=== PATIENT | male | born 1975 | race Caucasian/White ===

== ENCOUNTER 2024-06-06 09:33 | Emergency (ER) | payer MEDICAID ==
[~2024-06-06] VITALS: Ht 175.3 cm; Wt 90.0 kg
[2024-06-06 09:37] VITALS: O2SAT 98
[2024-06-06 10:27] LABS: HEMATOCRIT. 48.3 % (42.0-52.0); HEMOGLOBIN. 16.1 g/dL (14.0-18.0); LYMPHOCYTES % 17.4 % (20.0-50.0); MEAN CORPUSCULAR HEMOGLOBIN 31.2 pg (28.0-32.0); MEAN CORPUSCULAR HGB CONC 33.3 g/dL (31.0-37.0); MEAN CORPUSCULAR VOLUME 93.8 fL (80.0-94.0); MONOCYTES % 7.4 % (2.0-8.0); NEUTROPHILS % 62.2 % (40.0-76.0); PLATELET 168 x1000/uL (130-400); RED BLOOD CELL COUNT 5.15 mill/uL (4.7-6.1); RED CELL DISTRIBUTION WIDTH 13.9 % (11.6-14.6); WHITE BLOOD COUNT 7.2 x1000/uL (4.5-11.0)
[2024-06-06 10:40] LABS: CARBON DIOXIDE 29 mEq/L (21-32); CHLORIDE 100 mEq/L (98-107); POTASSIUM 4.6 mEq/L (3.5-5.1); SODIUM 134 mEq/L (136-145)
[2024-06-06 10:45] LABS: CLARITY URINE CLEAR (CLEAR); COLOR URINE YELLOW (YELLOW); GLUCOSE URINE 3+ (NEGATIVE); KETONES URINE NEGATIVE (NEGATIVE); LEUKOCYTE ESTERASE URINE NEGATIVE (NEGATIVE); NITRITE URINE NEGATIVE (NEGATIVE); OCCULT BLOOD URINE NEGATIVE (NEGATIVE); PH URINE 6.5 (4.5-8.0); PROTEIN URINE NEGATIVE (NEGATIVE); SPECIFIC GRAVITY URINE 1.038 (1.005-1.030)
[2024-06-06 10:45] LABS: CREATININE 0.9 mg/dL (0.6-1.3); GLUCOSE 375 mg/dL (70-105)
[2024-06-06 10:46] LABS: UREA NITROGEN BLOOD 12 mg/dL (9-23)
[2024-06-06 10:47] LABS: ALANINE AMINOTRANSFERASE 170 IU/L (10-49)
[2024-06-06 10:48] LABS: ALBUMIN 4.3 g/dL (3.2-4.8); ASPARTATE AMINOTRANSFERASE 117 IU/L (<34); BILIRUBIN TOTAL 0.8 mg/dL (0.1-1.0); PROTEIN TOTAL 6.3 g/dL (6.0-8.3)
[2024-06-06 10:53] LABS: TROPONIN I HIGH SENSITIVITY < 4 ng/L (3.0-53)
[2024-06-06 10:55] LABS: BACTERIA URINE NONE SEEN; RBC URINE NONE SEEN /hpf (0-2); SQUAMOUS EPITHELIAL CELL URINE NONE SEEN /lpf (RARE/1+); WBC URINE 0-2 /hpf (0-2); YEAST URINE NONE SEEN
[2024-06-06] MEDS ORDERED: METF-873 MT (11:11)
[2024-06-06] MEDS: INSULIN REGULAR (HUMULIN R) 1000UNITS/10ML VIAL IV STA (11:40)
[2024-06-06] MEDS: SODIUM CHLORIDE 0.9% 1,000 ML IV ONE (11:40)
[2024-06-06 12:45] VITALS: BP 143/103; PULSE 71; RESP 19; TEMP 98.3
== END 2024-06-06 12:49 | disposition home or self-care (01) ==
LOC: ER 09:33
DX: E11.65 Type 2 diabetes mellitus with hyperglycemia (principal); E78.00 Pure hypercholesterolemia, unspecified; I10 Essential (primary) hypertension
CPT/HCPCS: 80053; 81003; 82962; 83880; 85025; 84484; 36415; 71045; 93005; 96361; 96374; 99285; J1815; J7030; Z7610 ×2